=== PATIENT | male | born 1970 | race Caucasian/White ===

== ENCOUNTER 2016-04-21 08:36 | Inpatient (IN) | payer MEDICAID ==
[~2016-04-21] VITALS: Ht 165.1 cm; Wt 67.6 kg
[2016-04-21 09:22] LABS: BASOPHILS # (AUTO) 0.03 K/uL (0.00-0.20); BASOPHILS % (AUTO) 0.4 % (0.0-2.0); EOSINOPHILS # (AUTO) 0.55 K/uL (0.00-0.70); EOSINOPHILS % (AUTO) 7.46 % (1.0-6.0); HEMATOCRIT 44.1 % (41-53); HEMOGLOBIN 14.5 g/dL (13.5-17.5); LYMPHOCYTES # (AUTO) 2.1 K/uL (1.0-4.8); LYMPHOCYTES % (AUTO) 28.6 % (22.0-44.0); MEAN CORPUSCULAR HEMOGLOBIN 29.7 pg (26.0-34.0); MEAN CORPUSCULAR HGB CONC 32.8 G/dL (31.0-37.0); MEAN CORPUSCULAR VOLUME 91 fL (80-100); MONOCYTES # (AUTO) 1.2 K/uL (0.1-1.0); MONOCYTES % (AUTO) 16.1 % (2.0-9.0); NEUTROPHILS # (AUTO) 3.5 K/uL (1.8-7.7); NEUTROPHILS % (AUTO) 47.5 % (40.0-70.0); PLATELET COUNT (AUTO) 238 K/uL (150-450); RED BLOOD CELL COUNT(AUTO) 4.87 MIL/uL (4.50-5.90); WHITE BLOOD COUNT (AUTO) 7.4 K/uL (4.5-11.0)
[2016-04-21 09:30] LABS: ANION GAP 6 mmol/L (8-16); CALCIUM, TOTAL 8.7 mg/dL (8.8-10.5); CARBON DIOXIDE 28 mmol/L (22-29); CHLORIDE 104 mmol/L (98-107); GLOMERULAR FILTR. RATE CALC > 60 mL/min (>60); POTASSIUM 4.3 mmol/L (3.5-5.1); SODIUM SERUM 138 mmol/L (136-145); UREA NITROGEN, BLOOD 18 mg/dL (7-18)
[2016-04-21 09:36] LABS: ALANINE AMINOTRANSFERASE 44 U/L (12-78); ALBUMIN 3.3 g/dL (3.4-5.0); ASPARTATE AMINOTRANSFERASE 25 U/L (15-37); BILIRUBIN,TOTAL 0.4 mg/dL (0.1-1.0); TOTAL PROTEIN, SERUM 7.3 g/dL (6.4-8.2)
[2016-04-21] MEDS ORDERED: ZOLPIDEM TARTRATE 10 MG TABLET PO PRN (10:15)
[2016-04-21] MEDS ORDERED: LORazepam 2 MG TABLET PO PRN (10:15)
[2016-04-21] MEDS ORDERED: QUEtiapine FUMARATE 100 MG TABLET PO PRN (10:15)
[2016-04-21 12:05] VITALS: BP 134/83
[2016-04-21] MEDS ORDERED: GuaiFENesin/D-METHORPHAN [SUGAR-FREE] 200-20MG/10 ML SYRUP UDCUP PO PRN (12:15)
[2016-04-21] MEDS ORDERED: LOPERAMIDE HCL 2 MG CAPSULE PO PRN ×2 (12:15)
[2016-04-21] MEDS ORDERED: TUBERCULIN, PURIFIED PROTEIN DERIVATIVE 5 TU/0.1 ML SYG ID ONE (12:15)
[2016-04-21] MEDS ORDERED: ACETAMINOPHEN 325 MG TABLET PO PRN ×2 (12:15)
[2016-04-21] MEDS ORDERED: PROMETHAZINE HCL 25 MG TABLET PO PRN (12:15)
[2016-04-21] MEDS ORDERED: HydrOXYzine PAMOATE 50 MG CAPSULE PO PRN (12:15)
[2016-04-21] MEDS ORDERED: MAGNESIUM HYDROXIDE SUSPENSION 30 ML UDCUP PO PRN ×2 (12:15)
[2016-04-21] MEDS ORDERED: MAG HYDROX/AL HYDROX/SIMETH ES 30 ML SUSPENSION UDCUP PO PRN ×2 (12:15)
[2016-04-21] MEDS: THIAMINE HCL 100 MG TABLET PO SCH (17:13)
[2016-04-22 08:05] VITALS: BP 118/68
[2016-04-22] MEDS: THIAMINE HCL 100 MG TABLET PO SCH ×2 (11:37→16:35)
[2016-04-22] MEDS: FOLIC ACID 1 MG TABLET PO SCH (11:37)
[2016-04-22] MEDS: MULTIVITAMINS WITH MINERALS, THERAPEUTIC TABLET PO SCH (11:37)
[2016-04-22] MEDS ORDERED: OLANZapine 5 MG RAPDIS TABLET PO PRN (17:00)
[2016-04-22 19:57] VITALS: BP 122/71
[2016-04-22] MEDS: OLANZapine 5 MG RAPDIS TABLET PO SCH (21:28)
[2016-04-23 06:21] VITALS: BP 124/79
[2016-04-23 08:05] VITALS: BP 109/69
[2016-04-23] MEDS: FOLIC ACID 1 MG TABLET PO SCH (10:59)
[2016-04-23] MEDS: MULTIVITAMINS WITH MINERALS, THERAPEUTIC TABLET PO SCH (10:59)
[2016-04-23] MEDS: THIAMINE HCL 100 MG TABLET PO SCH ×2 (10:59→16:30)
[2016-04-23 18:00] VITALS: BP 112/72
[2016-04-23] MEDS: OLANZapine 5 MG RAPDIS TABLET PO SCH (19:59)
[2016-04-24 08:05] VITALS: BP 129/86
[2016-04-24] MEDS: THIAMINE HCL 100 MG TABLET PO SCH ×2 (09:00→17:00)
[2016-04-24] MEDS: FOLIC ACID 1 MG TABLET PO SCH (09:00)
[2016-04-24] MEDS: MULTIVITAMINS WITH MINERALS, THERAPEUTIC TABLET PO SCH (09:00)
[2016-04-24] MEDS ORDERED: PALIPERIDONE PALMITATE 234 MG/1.5 ML SYRINGE IM ONE (16:00)
[2016-04-24] MEDS ORDERED: PALI156D IM (16:03)
[2016-04-24 16:28] VITALS: BP 122/65
[2016-04-24] MEDS: OLANZapine 5 MG RAPDIS TABLET PO SCH (20:06)
[2016-04-25] MEDS ORDERED: OLAN10TA3 PO (05:41)
[2016-04-25 08:05] VITALS: BP 128/83
[2016-04-25] MEDS: THIAMINE HCL 100 MG TABLET PO SCH (10:12)
[2016-04-25] MEDS: FOLIC ACID 1 MG TABLET PO SCH (10:12)
[2016-04-25] MEDS: MULTIVITAMINS WITH MINERALS, THERAPEUTIC TABLET PO SCH (10:13)
[2016-04-28] MEDS ORDERED: PALIPERIDONE PALMITATE 156 MG/ML SYRINGE IM ONE (09:00)
== END 2016-04-25 10:30 | disposition home or self-care (01) | DRG 885 ==
LOC: EMS 08:39 → 3EI 11:28 → EDBD 11:28
PROVIDERS: ADMIT Psychiatry & Neurology Psychiatry; ATTEND Psychiatry & Neurology Psychiatry
DX: F29 Unspecified psychosis not due to a substance or known physiological condition (principal); E46 Unspecified protein-calorie malnutrition; F17.210 Nicotine dependence, cigarettes, uncomplicated; J44.9 Chronic obstructive pulmonary disease, unspecified; Z72.89 Other problems related to lifestyle; Z68.24 Body mass index [BMI] 24.0-24.9, adult; Z59.0 Homelessness; Z91.19 Patient's noncompliance with other medical treatment and regimen
CPT/HCPCS: 99285; G0480